=== PATIENT | male | born 1965 | race Caucasian/White ===

== ENCOUNTER 2020-11-27 14:09 | Outpatient (REF) | payer BC, SELFPAY ==
[2020-11-27 18:10] LABS: Estimated Average Glucose 126 mg/dL
[2020-11-27 18:32] LABS: Alanine Aminotransferase 18 U/L (0-40); Albumin Level 4.2 g/dL (3.5-5.0); Alkaline Phosphatase 59 U/L (39-117); Anion Gap 11 (12-20); Aspartate Amino Transferase 14 U/L (5-37); Bilirubin Total 0.5 mg/dL (0.0-1.0); Blood Urea Nitrogen 22 mg/dL (9-16); Calcium 9.4 mg/dL (8.4-10.2); Carbon Dioxide 29 mmol/L (22-29); Chloride 104 mmol/L (96-108); Estimated Glomerular Filt Rate 53; Glucose Random 134 mg/dL (60-115); Potassium 4.3 mmol/L (3.3-5.1); Sodium 140 mmol/L (135-145); Total Protein 6.4 g/dL (6.5-8.0)
== END 2020-11-27 14:10 | disposition home or self-care (01) ==
LOC: HO.MANLDS 14:09
PROVIDERS: PCP Internal Medicine; Visit Provider Physician Assistant
DX: R73.01 Impaired fasting glucose (principal)
CPT/HCPCS: 36415; 80053; 83036

== ENCOUNTER 2021-10-13 14:54 | Outpatient (REF) | payer BC, SELFPAY ==
[2021-10-13 18:09] LABS: Alanine Aminotransferase 84 U/L (0-40); Alkaline Phosphatase 189 U/L (39-117); Anion Gap 15 (12-20); Aspartate Amino Transferase 25 U/L (5-37); Bilirubin Total 0.4 mg/dL (0.0-1.0); Blood Urea Nitrogen 25 mg/dL (9-16); Calcium 9.4 mg/dL (8.4-10.2); Carbon Dioxide 25 mmol/L (22-29); Chloride 103 mmol/L (96-108); Estimated Glomerular Filt Rate 57; Glucose Random 135 mg/dL (60-115); Potassium 4.1 mmol/L (3.3-5.1); Sodium 139 mmol/L (135-145)
== END 2021-10-13 14:55 | disposition home or self-care (01) ==
LOC: HO.MANLDS 14:54
PROVIDERS: PCP Physician Assistant; Visit Provider Physician Assistant
DX: R79.89 Other specified abnormal findings of blood chemistry (principal)
CPT/HCPCS: 36415; 80053

== ENCOUNTER 2024-08-18 10:49 | Outpatient (REF) | payer BC, SELFPAY ==
--- OUTSIDE RECORDS SUMMARY | 2024-08-18 12:23 | XMS_ITS | Referral Summary ---
Author Organization [facility] Address [address] [place] [address] Care Team Providers Care Brand Recorder Name Role Phone Jassi José Primary Care Provider [phone] Allergies No known active allergies Medications dextroamphetami ne-amphetamine (ADDERALL) 10 mg tablet Take 10 mg by mouth once a day. Active oxyCODONE IR (ROXICODONE) 5 mg tablet Take 1 tablet (5 mg total) by mouth every 4 hours as needed for pain for up to 30 doses. Max Daily Amount: 30 mg 30 tablet Active Additional Information Patient not taking.Reported on 04/03/2022 acetaminophen (TYLENOL) 500 mg tablet Take 500 mg by mouth every 6 hours as needed for pain. Active ibuprofen (MOTRIN) 400 mg tablet Take 400 mg by mouth every 6 hours as needed for pain. 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 Traumatic amputation of righ t upper extremity, initial encounter 10/04/2021 Attention deficit hyperactivity disorder 018 Childhood asthma 01/19/2018 Acute traumatic pain Social History Tobacco Use Types Packs/Day Years Used Date Smoking Tobacco: Never Smokeless Tobacco: Never Alcohol Use Standard Drinks/Week Comments Not Currently 0 (1 standard drink = 0.6 oz pur e alcohol) Sex and Gender Information Value Date Recorded Sex Assigned at Male 10/19/2021 9:07 AM EDT Legal Sex Male 6:54 PM EDT Gender Identity Male 10/19/2021 9:07 AM EDT Sexual Orientation Straight 10/19/2021 9: 07 AM EDT Last Filed Vital Signs Vital Sign Reading Time Taken Comments Blood Pressure 131/82 05/13/2022 11:08 AM EST Pulse 76 05/13/2022 11:08 AM EST Temperature 36.7 ??C (98 ??F) 10/16/2021 12:50 PM EDT Respiratory Rate 16 10/16/2021 12:45 PM EDT Oxygen Saturation 97% 10/16/2021 12:50 PM EDT Inhaled Oxygen Concentration - - Weight 78.5 kg (173 lb) 05/13/2022 11:08 AM EST Height 170.2 cm (5' 7 ) 05/13/2022 11:08 AM EST Body Mass Index 27.1 05/13/2022 11:08 AM EST Plan of Treatment Not on file Insurance [facility] PPO/EPO Advance Directives * Full Code (Latest Code Status on File) Date Activated Date Inactivated Comments 10/05/2021 1:14 PM 10/09/2021 3:56 PM Care Teams Brand Recorder Relationship Specialty Start Date End Date Jassi José [address] [place] [id number] PCP - General Internal Medicine 08/22/21
--- OUTSIDE RECORDS SUMMARY | 2024-08-18 12:23 | XMS_ITS | Clinical Summary ---
Author Organization [facility] Address [address] [place] [address] Care Team Providers Care Credit Risk Officer Name Role Phone Jassi José Primary Care Provider Allergies No known active allergies Medications dextroamphetami [...] 05/13/2022 11:08 AM EST Plan of Treatment Health Maintenance Due Date Last Done Comments Cologuard 1967 Colon Cancer Screening 1967 Colonoscopy 1967 FOBT / Fit Test 1967 HIV Screening 1967 Hepatitis C Screening 1967 Sigmoidoscopy 1967 Hepatitis B Vaccines (1 of 3 - 19+ 3-dose series) 1986 Pneumococcal Vaccine: 50+ Ye ars (1 of 2 - PCV) 1986 Zoster Vaccines (1 of 2) 2017 COVID-19 Vaccine ( - season) 2024 05/07/2021, 10/25/2020, 09/27/2020 Influenza Vaccine (#1) 2024 Alcohol/Substance Use Screening 06/14/2024 Depression Screening and Follow-Up 06/14/2024 Social Drivers of Health Tara ual Screening 06/14/2024 DTaP,Tdap,and Td Vaccines (2 - Td or Tdap) 10/07/2031 10/06/2021 RSV Vaccine (60+ years old a nd patients) (1 - 1-dose 75+ series) 2042 Insurance [employer] [place] PPO/EPO Advance Directives * Full Code (Latest Code Status on File) Date Activated Date Inactivated Comments 10/05/2021 1:14 PM 10/09/2021 3:56 PM Care Teams Credit Risk Officer Relationship Specialty Start Date End Date Jassi José [address] [place] [phone] PCP - General Internal Medicine 08/22/21
--- OUTSIDE RECORDS SUMMARY | 2024-08-18 12:23 | XMS_ITS | Encounter Summary ---
Author Organization [facility] Address [address] [place] [address] Care Team Providers Care Wellness Program Manager Name Role Phone Jassi José Primary Care Provider [phone] Reason for Visit * Auth/Cert Specialty Diagnoses / Procedures Referred By Otis dejesus Referred To Contact Diagnoses Finger mass, right Finger mass, right [R22.31] Procedures MA SECD CLOS SURG WND EXTEN/COMPLIC MA REMOVAL OF FOREIGN BODY DEEP/COMPLIC RIGHT THUMB REMOVAL OF SUTURE GRANULOMA Trell Anna MD [address] [place] [id number] Phone: tel: fax: Referral ID Status Reason Start Date Expiration Date Visits Re quested Visits Authorized [id number] 10/06/2021 99 99 Encounter Details Date Type Department Care Team ([facility] Contact Info) Description 04/24/2024 12:00 PM [facility] Hospital Encounter Social History Tobacco Use Types Packs/Day Years [...] Orientation Straight 10/19/2021 9: 07 AM EDT documented as of this encounter Plan of Treatment Not on file documented as of this encounter Visit Diagnoses Diagnosis Finger mass, right- Primary Localized superficial swelling, mass, or lump documented in this encounter Admitting Diagnoses Diagnosis Finger mass, right Localized superficial swelling, mass, or lump documented in this encounter Care Teams Wellness Program Manager Relationship Specialty Start Date End Date Jassi José [address] [place] [phone] PCP - General Internal Medicine 08/22/21 documented as of this encounter
--- OUTSIDE RECORDS SUMMARY | 2024-08-18 12:23 | XMS_ITS | Data Portability ---
Author Organization [facility] Home Service Address [address] [place] [address] Assessment No assessment recorded. Plan of Treatment Reminders Order Date Submit Date Provider Last Modified By Organization Details Last Modified Time Details Appointments NEW PROBLEM 15 2024 10:15A M DAVID ROSARIO Not available Not available Not available Lab lipid panel, blood 2024 025 [facility], [address] [place] [address], [address], 08/18/2024 10:45:48 CK (creatine kinase), total, serum 2024 025 [facility], [address] [place] [address], [address], 08/18/2024 10:45:48 erythrocy te sedimenta tion rate by westergre n method 2024 025 [facility], [address] [place] [address], [place], [address], 08/18/2024 10:45:48 C-reactiv e protein, quantitat chantale, serum or plasma 2024 025 [facility], [address] [place] [address], [address], 08/18/2024 10:45:48 vitamin B12 + folate, serum or blood 2024 025 [facility], [address] [place] [address], [address], 08/18/2024 10:45:48 vitamin D, 25-hydrox y, total, serum 2024 025 [facility], [address] [place] [address], [address], 08/18/2024 10:45:48 testoster one, free + total, serum 2024 025 [facility], [address] [place] [address], [address], 08/18/2024 10:45:48 TSH + T4, serum 2024 025 [facility], [address] [place] [address], [address], 08/18/2024 10:45:48 CBC w/ auto diff 2024 025 [facility], [address] [place] [address], [address], 08/18/2024 10:45:48 hemoglobi n A1c, QN, blood 2024 025 [facility], [address] [place] [address], [address], 08/18/2024 10:45:48 iron + TIBC + ferritin, serum 2024 025 [facility], [address] [place] [address], [address], 08/18/2024 10:45:48 CMP, serum or plasma 2024 025 [facility], [address] [place] [address], [address], 08/18/2024 10:45:48 PSA, serum or plasma 2022 023 [facility] (Out[facility]), [address] [place] [address], [address], 04/21/2023 19:44:59 uric acid, serum or plasma 2022 023 [facility] (Outpatient), [address] [place] [address], [address], 04/21/2023 11:39:12 BATSHEVA (antinucl ear antibodie s) screen, serum 2022 023 [facility] (Outpatient), [address] [place] [address], [address], 04/21/2023 11:39:11 vitamin B12 + folate, serum or blood 2022 023 [facility] (Outpatient), [address] [place] [address], [address], 04/21/2023 11:39:12 ESR (erythroc yte sedimenta tion rate), blood 2022 023 [facility] (Outpatient), [address] [place] [address], [address], 04/21/2023 11:39:11 lyme igg + igm Ab, western blot, serum 2022 023 [facility] (Outpatient), [address] [place] [address], [address], 04/22/2023 12:06:07 anaplasma phagocyto philum (hga/hge) igg+igm Ab, serum 2022 023 [facility] (Outpatient), [address] [place] [address], [address], 04/24/2023 08:42:34 rf (rheumato id factor), serum 2022 023 [facility] (Outpatient), [address] [place], [address], 04/21/2023 11:39:11 C-reactiv e protein, quantitat chantale, serum or plasma 2022 023 [facility] (Outpatient), [address] [place], [address], 04/21/2023 19:44:36 ehrlichia chaffeens is, igg+igm Ab, serum 2022 023 [facility] (Outpatient), [address] [place], [address], 04/24/2023 08:42:03 Referral physical therapist referral 2022 023 [facility], [address] [place], [address], 12/22/2022 08:10:59 gastroent erologist referral 2022 023 [facility], [address] [place] [address], [address], 06/22/2022 08:51:03 Procedures None recorded. Surgeries None recorded. Imaging CT, abdomen + pelvis, w/o contrast 2023 024 [email or web address] Not available 04/19/2024 08:11:03 XR, shoulder, 2 or more view 2023 024 [facility] Not available 04/08/2024 23:47:38 Medication Orders tizanidin e 4 mg tablet 2022 023 [email or web address] [facility], [address] [place], [address], 04/07/2024 11:53:23 prednison e 10 mg tablet 2022 023 [email or web address] [facility], [address] [place], [address], 08/18/2024 10:27:51 omeprazol e 20 mg capsule,d elayed release 2022 023 [facility], [address] [place], [address], 06/17/2022 09:42:24 Patient TargetsNo targets recorded. Patient InstructionsNo instructions recorded. Reason for Referral Tutoring Clinician Referral for Gastro-esophageal reflux disease with esophagitis esophagitis on esophagus Referring Physician: Arin Briggs, Internal Medicine, Encounter Date: 06/17/2022 Physical Therapist Referral for Thoracic back pain thoracic back pain and spasm Referring Physician: Arin Briggs, Internal Medicine, Encounter Date: 12/16/2022 Results Created Date Observation Date Name Description Value Unit Range Abnormal Flag Note LastModifiedBy Organization Detail LastModifiedTime 05/29/20 22 05/28/2022 CT, abdom en + pelvi s, w/o contr ast No observ ation record ed. [email or web address] [facility] [address] [place] [address], [address], 06/17/2022 09:42:57 03/16/20 23 03/16/2023 XR, thora cic spine , 2 view No observ ation record ed. [email or web address] [address], [address], 03/19/2023 16:09:43 04/08/20 24 04/07/2024 XR, shoul joe, 2 or more view No observ ation record ed. [email or web address] [address], [address], 04/10/2024 09:23:12 04/26/20 24 04/23/2024 CT, abdom en + pelvi s, w/o contr ast No observ ation record ed. [email or web address] [address], [address], 04/26/2024 11:58:07 05/12/20 24 05/12/2024 XR, orbit , 4 or more view No observ ation record ed. [email or web address] [address], [address], 05/15/2024 08:58:01 05/16/20 24 05/16/2024 MRI, shoul joe, w/o contr ast No observ ation record ed. [email or web address] [address], [address], 05/22/2024 12:55:52 Result Notes None recorded. Problems Name Problem SNOMED Code Status Onset Date Resolution Date Notes Provider Name and Address Organization Details Recorded Time Attention deficit hyperacti vity disorder 544880993 Active 2017 Nilda benitez [facility] 8 16:40:42 Impaired fasting glycemia 005392299 Active 2017 Nilda benitez [facility] 8 16:40:48 Childhood asthma 664595040 Active 2017 Nilda benitez [facility] 8 16:40:56 Asthma 112016433 Active 2021 DAVID ROSARIO [address] [place], [address], [facility] 2 11:50:03 Serum creatinin e above reference range 461492443 Active 2021 DAVID ROSARIO [address] [place], [address], [facility] 2 12:04:14 Traumatic amputatio n, finger, through distal interphal angeal joint 367584998 Active 2021 DAVID ROSARIO [address] [place], [address], [facility] 2 12:17:35 Pain in pelvis 00330621 Active 2021 DAVID ROSARIO [address] [place], [address], [facility] 2 09:43:05 Gastro-es ophageal reflux disease with esophagit is 613605388 Active 2022 DAVID ROSARIO [address] [place], [address], [facility] 3 09:40:50 Umbilical hernia 021475108 Active 2022 DAVID ROSARIO [address] [place], [address], [facility] 3 09:46:06 Degenerat ion of lumbar intervert ebral disc 72322140 Active 2022 DAVID ROSARIO [address] [place], [address], [facility] 3 09:46:14 Diverticu losis of colon 595774695 Active 2022 DAVID ROSARIO [address] [place], [address], [facility] 3 09:46:26 Kidney stone 13778726 Active 2022 DAVID ROSARIO [address] [place], [address], [facility] 3 09:46:43 Thoracic back pain 828107276 Active 2022 DAVID ROSARIO [address] [place], [address], [facility] 3 11:36:53 Degenerat ion of thoracic intervert ebral disc 16228985 Active 2022 DAVID ROSARIO [address] [place], [address], [facility] 3 10:30:48 Multiple joint pain 90235478 Active 2022 DAVID ROSARIO [address] [place], [address], [facility] 3 11:33:38 Induratio n penis plastica 6698462 Active 2022 DAVID ROSARIO [address] [place], [address], [facility] 3 11:35:15 Pain of right shoulder joint 374939233694 52992 Active 2023 DAVID ROSARIO [address] [place], [address], [facility] 4 12:29:57 Rotator cuff impingeme nt syndrome 710556392 Active 2023 DAVID ROSARIO [address] [place], [address], [facility] 4 10:26:31 Rotator cuff impingeme nt syndrome 526872134 Active 2023 DAVID ROSARIO [address] [place], [address], [facility] 4 10:26:33 Pain of right knee joint 653570350363 100 Active 2023 DAVID ROSARIO [address] [place], [address], [facility] 4 13:36:17 Supraspin atus tear 954640107 Active 2023 DAVID ROSARIO [address] [place], [address], [facility] 4 12:58:16 Pain of left elbow joint 097177378832 56495 Active 2024 DAVID ROSARIO [address] [place], [address], [facility] 5 11:43:39 Fatigue 20307944 Active 2024 DAVID ROSARIO [address] [place], [address], [facility] 5 10:38:44 Gastroeso phageal reflux disease 614254697 Active 2024 DAVID ROSARIO [address] [place], [address], [facility] 5 10:40:13 Intoleran ce to lactose 418036630 Active 2024 DAVID ROSARIO [address] [place], [address], [facility] 5 10:41:55 Myalgia caused by statin 292647479822 14365 Active 2024 DAVID ROSARIO [address] [place] [address], [address], [facility] 10:42:51 Problem Notes None recorded. Procedures Surgical History Date Name Laterality Status Provider Name and Address Organization Details Recorded Time Remove tonsils and adenoids completed September SUMA Spaulding [address] [place] [address], [address], [facility] 08/21/2019 09:39:53 extraction of wisdom tooth completed September [facility] [address], [address], [facility] 08/21/2019 09:40:00 Imaging Results Imaging Date Name Status LastModified by Organiz ation Details LastModified Time 05/28/2022 CT, abdomen + pelvis, w/o contrast completed [email or web address] [facility] [address] [place] [address], [address], 06/17/2022 09:42:57 03/16/2023 XR, thoracic spine, 2 view completed [address], [address], 03/19/2023 16:09:43 04/07/2024 XR, shoulder, 2 or more view completed [email or web address] [address], [address], 04/10/2024 09:23:12 04/23/2024 CT, abdomen + pelvis, w/o contrast completed [email or web address] [address], [address], 04/26/2024 11:58:07 05/12/2024 XR, orbit, 4 or more view completed [email or web address] [address], [address], 05/15/2024 08:58:01 05/16/2024 MRI, shoulder, w/o contrast completed [email or web address] [address], [address], 05/22/2024 12:55:52 Procedure Notes None recorded. Medical Equipment None Reported. Allergies No known drug allergies Medications Name Sig Start Date Stop Date Status Note LastModified by Organization Details LastModified Time cyclobenzap rine 10 mg tablet TAKE 1 TABLET BY MOUTH THREE TIMES DAILY FOR 15 DAYS NEEDED 02/18 completed Not Available Not Available Not Available prednisone 10 mg tablet PLEASE SEE ATTACHED FOR DETAILED DIRECTION S 08/18 completed Not Available Not Available Not Available azithromyci n 250 mg tablet TAKE 2 TABLETS BY MOUTH TODAY, THEN TAKE 1 TABLET DAILY FOR 4 DAYS DIRECTED 08/18 completed Not Available Not Available Not Available tizanidine 4 mg tablet TAKE 1 TABLET BY MOUTH EVERY 6 HOURS NEEDED FOR 14 DAYS 04/07 completed Not Available Not Available Not Available acetaminoph en 300 mg-codeine 30 mg tablet 01/21 completed Not Available Not Available Not Available ciprofloxac in 500 mg tablet TAKE 1 TABLET BY MOUTH EVERY 12 HOURS FOR 5 DAYS 04/29 completed Not Available Not Available Not Available sulfamethox azole 800 mg-trimetho prim 160 mg tablet 02/18 completed Not Available Not Available Not Available dexmethylph enidate 5 mg tablet 08/20 completed Not Available Not Available Not Available ketorolac 10 mg tablet 10/13 completed Not Available Not Available Not Available dextroamphe tamine-amph etamine ER 20 mg 24hr capsule,ext end release TAKE 1 CAPSULE BY MOUTH EVERY MORNING DIRECTED FOR ADHD active Not Available Not Available No t Available doxycycline monohydrate 100 mg capsule PLEASE SEE ATTACHED FOR DETAILED DIRECTION S 05/04 completed Not Available Not Available Not Available cephalexin 500 mg capsule TAKE 1 CAPSULE BY MOUTH 4 TIMES A DAY FOR 7 DAYS. 08/18 completed Not Available Not Available Not Available pantoprazol e 40 mg tablet,riki yed release active Not Available Not Available Not Available dextroamphe tamine-amph etamine 20 mg tablet TAKE 1 TABLET BY MOUTH TWICE A DAY (7AM AND 2PM) FOR ADHD 10/13 completed Not Available Not Available Not Available mupirocin calcium 2 % topical cream 01/21 completed Not Available Not Available Not Available omeprazole 20 mg capsule,del ayed release TAKE 1 CAPSULE BY MOUTH EVERY DAY FOR 90 DAYS active Not Available Not Available No t Available diclofenac sodium 75 mg tablet,riki yed release TAKE 1 TABLET BY MOUTH TWICE DAILY WITH MEALS FOR 15 DAYS 04/29 completed Not Available Not Available Not Available dextroamphe tamine-amph etamine ER 10 mg 24hr capsule,ext end release TAKE 2 CAPSULES BY MOUTH EVERY MORNING FOR ADHD 08/18 completed Not Available Not Available Not Available albuterol sulfate HFA 90 mcg/actuati on aerosol inhaler INHALE 2 PUFFS EVERY 4 HOURS BY INHALATIO N ROUTE FOR 30 DAYS. 12/16 completed Not Available Not Available Not Available ondansetron 4 mg disintegrat ing tablet 10/13 completed Not Available Not Available Not Available doxycycline hyclate 100 mg tablet 01/21 completed Not Available Not Available Not Available naproxen 500 mg tablet Take 1 tablet twice a day by oral route for 15 days. 08/20 completed Not Available Not Available Not Available Adderall 10 mg tablet Take 1 tablet every day by oral route. 05/04 completed Not Available Not Available Not Available oxycodone 5 mg tablet TAKE 1 TABLET BY MOUTH EVERY 4 HOURS NEEDED FOR PAIN 10/13 completed Not Available Not Available Not Available dextroamphe tamine-amph etamine ER 25 mg 24hr capsule,ext end release 08/20 completed Not Available Not Available Not Available Boostrix Tdap 2.5 Lf unit-8 mcg-5 Lf/0.5 mL intramuscul ar syringe 08/20 completed Not Available Not Available Not Available ibuprofen 500mg twice a day prn active Not Available Not Available No t Available DayQuil Allergy 12-HR PRN 10/13 completed Not Available Not Available Not Available GaviLyte-G 236 gram-22.74 gram-6.74 gram-5.86 gram oral solution 01/21 completed Not Available Not Available Not Available Zyrtec 10 mg capsule Take 1 capsule every day by oral route. 04/29 completed Not Available Not Available Not Available Paxlovid 300 mg (150 mg x 2)-100 mg tablets in a dose pack 05/04 completed Not Available Not Available Not Available Vitals Date Recorded Body height Body mass index (BMI) Body weight Heart rate Oxygen saturation Oxygen saturation in Arterial blood by Pulse oximetry Systolic blood pressure Diastolic blood pressure Provider Name and Address Organization Details Last Updated DateTime 3 171.45 cm 26.9 kg/m2 27938.7 9 g 106 /min 95 % 95 % 132 mm[Hg] 62 mm[Hg] Aishwarya Carrillo [facility] 3 09:20:48 Date Recorded Body height Body mass index (BMI) Body weight Heart rate Oxygen saturation Oxygen saturation in Arterial blood by Pulse oximetry Systolic blood pressure Diastolic blood pressure Provider Name and Address Organization Details Last Updated DateTime 3 171.45 cm 26.8 kg/m2 65867.0 7 g 97 /min 98 % 98 % 130 mm[Hg] 72 mm[Hg] Lucita Richardson [facility] 3 11:23:44 Date Recorded Body height Body mass index (BMI) Body weight Systolic blood pressure Diastolic blood pressure Provider Name and Address Organization Details Last Updated DateTime 04/21/2023 171.45 cm 26.8 kg/m2 62278.07 g 120 mm[Hg] 70 mm[Hg] Lucita Richardson [facility] 3 11:20:24 Date Recorded Body height Body mass index (BMI) Body weight Heart rate Oxygen saturation Oxygen saturation in Arterial blood by Pulse oximetry Systolic blood pressure Diastolic blood pressure Provider Name and Address Organization Details Last Updated DateTime 4 171.45 cm 26.8 kg/m2 29209.0 7 g 72 /min 96 % 96 % 124 mm[Hg] 82 mm[Hg] Giselle Landa [facility] 4 11:55:56 Date Recorded Body height Body mass index (BMI) Body weight Heart rate Oxygen saturation Oxygen saturation in Arterial blood by Pulse oximetry Systolic blood pressure Diastolic blood pressure Provider Name and Address Organization Details Last Updated DateTime 5 171.45 cm 26.8 kg/m2 20820.0 7 g 79 /min 94 % 94 % 130 mm[Hg] 80 mm[Hg] Lucita Richardson [facility] 5 10:31:08 Social History Question Answer Notes LastModified by Organizat ion Details LastModified Time Tobacco Smoking Status Never Smoker Not Available [facility] 04/16/2020 03:36:24 What Was The Date Of Your Most Recent Tobacco Screening? 08/18/2024 Information not available 08/18/2024 Sex: Unknown Functional Status None recorded. Mental Status None recorded. Family History Relationship Description Onset Age of this Age Resolved Age Notes LastModified by Organization Details LastModified Time Father Myocardial infarction [email or web address] Not available 02/2020 09:39:25 Mother Diabetes mellitus [email or web address] Not available 08/24 09:14:10 Mother Asthma [email or web address] Not available 08/25/2019 09:14:17 Medical History No medical history recorded. Immunizations Vaccine Type Date Status Note Provider Nam e and Address Organization Details Recorded Time Tdap 10/06/[address] [facility] 04/16/2022 18:42:50 Tdap 09/19/[address] [facility] 04/16/2022 18:42:50 COVID-19, mRNA, LNP-S, PF, 100 mcg/0.5mL dose or 50 mcg/0.25mL dose 09/27/2020 completed TOM Wan [facility] 12/16/2022 11:17:21 COVID-19, mRNA, LNP-S, PF, 100 mcg/0.5mL dose or 50 mcg/0.25mL dose 10/25/2020 completed Bell benitez [place] [facility] 12/16/2022 11:17:21 Past Encounters Encounter ID Performer Location Encounter Start Date Encounter Closed Date Diagnosis/Indication Diagnosis SNOMED-CT Code Diagnosis ICD10 Code Diagnosis Note [id number] September SUMA Spaulding [facility] [address] [facility],[place] [address] 01/21/2018 09:49:25 01/21/2018 10:24:33 Pain of left shoulder joint 9493305446 4589577 M25.512 likely sprain given mechanism of injury treatment as below rest, ice, stretch Costal chondritis 498658 04 M94.0 ice and NSAIDS Acute low back pain 2788 25656 M54.5 [id number] [facility] [address] [facility],[place] [address] 08/16/2018 10:11:17 08/16/2018 11:30:08 Adult health examination 197826966 Z00.00 Active or passive immunization 706126988 Z23 Body mass index 25-29 - overweight 793350456 Z68.26 improve diet and exercise [id number] [facility] [address] [facility],[place] [address] 08/21/2019 09:15:10 08/21/2019 10:12:00 Adult health examination 763908595 Z00.00 Active or passive immunization 150972588 Z23 Body mass index 25-29 - overweight 565748405 Z68.26 mild. normal waist circumfere nce improve diet and exercise Pain of left testicle 16 97530593 1585898 N50.812 [id number] DAVID ROSARIO [facility] [address] [facility],[place] [address] 10/31/2019 15:33:31 10/31/2019 16:17:58 Shoulder joint pain 740590181 M25.519 given the trauma to the shoulder and the positive Lopez and empty can test will refer to ortho for XR and MRI [id number] DAVID ROSARIO [facility] [address] [facility], [place] [address] 11/27/2020 13:52:21 11/27/2020 15:54:10 Neck pain 14187115 M54.2 will treat Cervico-oc cipital neuralgia 58259326 M54.81 will treathas fu for shoulder with NEOS Impaired f asting glycemia 002476065 R73.01 will recheck labs [id number] DAVID ROSARIO [facility] [address] [facility],[place] [address] 02/11/2021 13:26:20 02/11/2021 15:05:27 Acute bronchitis 39613443 J20.9 will start on pred taper and z paktold him to rest, use tea and honey, can use OTC anti-hista mines Cough 05359722 R05 use cough drops, OTC anti-tussi ves Insect bite - wound 2764 19310 T14.8XXA monitor, keep clean [id number] DAVID ROSARIO [facility] [address] [facility],[place] [facility] [place] [address] 04/29/2021 09:26:33 04/29/2021 10:11:23 Active or passive immunization 395304330 Z23 advisedup to date Adult heal th examination 780437527 Z00.00 BW last check was goodwill hold on recheck until next appt [id number] DAVID ROSARIO [facility] [address] [facility],[place] [address] 10/13/2021 11:48:18 10/14/2021 16:36:21 Asthma 599720409 J45.20 stable Serum crea tinine above reference range 485261788 R79.89 will recheck levels for his kidney, following elevated levels in the hospital that did not level out Traumatic amputation, finger, through distal interphalangeal joint 800768377 S68.610A has fu with ortho and plastics [id number] DAVID ROSARIO [facility] [address] [facility],[place] [address] 05/04/2022 09:01:12 05/04/2022 13:55:41 Active or passive immunization 589491676 Z23 advisedup to date Adult heal th examination 685246047 Z00.00 BW last check was goodwill hold on recheck until next appt Pain in pelvis 50379035 R10.[address] Family his tory of hemochromatosis 703332256 Z83.49 will fu with genetic testing [id number] DAVID ROSARIO [facility] [address] [facility] [address] 06/17/2022 09:17:21 06/17/2022 10:05:09 Gastro-esophageal reflux disease with esophagitis 943505174 K21.01 will start on omeprazole until he sees GI Umbilical hernia 8587473 07 K42.9 stable, will monitor Degenerati on of lumbar intervertebral disc 21181368 M51.36 mild back pain, will keep Diverticul osis of colon 569436325 K57.30 stable, no flare ups, patient aware of symptoms to look for Kidney stone 07961579 N2 0.0 right kidney, will monitor [id number] DAVID ROSARIO [facility] [address] [place] [address],[place] [address] 12/16/2022 11:15:58 12/16/2022 14:03:10 Thoracic back pain 834193679 M54.6 will set up with tizanidine and prednisone taperstart there and also cont with the massage [id number] DAVID ROSARIO [facility] [address] [place] [address] 04/21/2023 11:16:40 04/21/2023 13:32:50 Multiple joint pain 77114146 M25.512 will set up with screening for tick borne illness or other possible causes Induration penis plastica 9492483 N48.6 will set up with PSA [id number] DAVID ROSARIO [facility] Medicine [address] [place] [address],[place] [address] 04/07/2024 11:44:56 04/07/2024 16:02:36 Depression screening 836817143 Z13.31 SCREENING NEGATIVE Pain of ri ght shoulder joint 8247938027 8988004 M25.511 agreed to XR shoulder Induration penis plastica 2999412 N48.6 will set up with PSA [id number] DAVID ROSARIO [facility] [address] [place] [address], ite [facility] [place] [address] 08/18/2024 10:20:21 08/18/2024 10:47:07 Fatigue 87816109 R53.83 Screening for cardiovascular system disease 371567809 Z13.6 Gastroesop hageal reflux disease 952542415 K21.9 Intoleranc e to lactose 292326902 E73.8 Myalgia ca used by statin 0149497462 5425441 M79.10 Health Concerns Section Related Observation LastModified by Organization Detai ls LastModified Time None Recorded Concern Status LastModified by Organization Details LastModified Time None Recorded Advance Directives Directive None Recorded Payers Encounter Date Sequence Insurance Name Policy Number Policy Murray Covered Member ID Murray Member ID Guarantor Name 06/17/2022 1 [place] [facility] [employer] (O) [id number] Maria M A Bashista [id number] 56 Josesito Bashista 12/16/2022 1 [place] [employer] [place] [id number] Maria M A Bashista [id number] Josesito Bashista 04/21/2023 1 [place] [facility] [employer] [place]) [id number] Maria M A Bashista [id number] 56 Josesito Bashista 04/07/2024 1 [place] [id number] Maria M A Bashista [id number] Josesito Bashista 08/18/2024 1 [place] [id number] Maria M A Bashista [id number] Josesito Bashista Notes Date Note Type Note Provider Name a nd Address Organization Details Recorded Time 06/17/2022 text/html review CT result s reviewed results including esophagitis which patient agreed to endoscope with GI eval, will start on prilosec in the meantime, prescription sentdoes report more trouble swallowing which is correlated to the inflammation he does have a fat containing umbilical hernia, discussed what to look for and where the pain will typically be locate also has multilevel degenerative disease in his lumbar spine, pt does have low back pain, though mild at this time, will monitor to see if it progresses diverticulosis of the colon, not active but added to problem list in case of future events also has a right sided small kidney stone, will just monitor that if he start presenting with flank pain patient was given a copy of CT report and his original hospital visit for disability insurance otherwise patient is doing well repeat blood work was normal, original related to lab error DAVID ROSARIO [address] [place], [address], [facility] 06/17/2022 09:55:09 12/16/2022 text/html c/o low back wolfgang n the patient reports that he has noticed for the last two monthsdid call about a month ago; was told to RICE but no improvement the patient has tried massage, NSAID's, PT no changes in his presentation or pain level pain feels sharper painno burning or electric pain does get shocking pain in the remainder of his right hand which is common for his type of injury left side mid thoracic; between his shoulder bladesis compensating a lot on his left side due to the traumatic amputation of the right phalanges the patient gets same pain intermittently same type on the right side as well works as a brown; 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, bending and lifting as well tends to provoke and worsen his symptoms no significant neck painmild low back pain, very inconsistent DAVID ROSARIO [address] [place], [address], [facility] 12/16/2022 11:48:46 04/21/2023 text/html f/o joint pain the patient reports symmetric pain in the knees, hips, shoulders, elbowsa little in his handshas been going on for a few daysdid try taking APAP and ibu without significant change in symptoms pain feels like a pressure in his joints the patient may have been bite by a bug before, not sure thoughwill need levels taken to r/o lyme disease DAVID ROSARIO [address] [place], [address], [facility] 04/21/2023 11:46:50 04/07/2024 text/html c/o right should er pain the patient was seeing his PT/OT for his right hand amputationthe patient has been having them work on his right shoulder the patient has hx of right shoulder pain which he has been putting up with recommended f/u with XR of his shoulder DAVID ROSARIO [address] [place], [address], [facility] 04/07/2024 12:36:34 08/18/2024 text/html c/o joint pain the patient is having bilateral joint pain of his hips, knees, and anklesno significant trauma or injurythe patient reports that he is also feeling more fatigued the patient reports that it has improved the patient has intermittent groin pain, which he has had for awhile, his scans and other testing has been normal, most likely muscle strain due to job the patient has an upper GI scheduled agreed to more lab work, with routine lab work as wellpossibly just inflammation due to work and activity level DAVID ROSARIO [address] [place] [address], [place], [address], [facility] 08/18/2024 10:47:05
--- OUTSIDE RECORDS SUMMARY | 2024-08-18 12:24 | XMS_ITS | Continuity of Care Document ---
Author Organization [facility], [facility] Address [address] [place] [address] [place] [address] Assessment No assessment recorded. Plan of Treatment Reminders Order Date Submit Date Provider Last Modified By Organization Details Last Modified Time Details Appointments NEW PROBLEM 15 2024 10:15A DAVID BAUGH Not available Not available Not available Lab lipid panel, blood 2024 025 [facility], [address] [place] [address], [id number], 08/18/2024 10:45:48 CK (creatine kinase), total, serum 2024 025 [facility], [address] [place] [address], [id number], 08/18/2024 10:45:48 erythrocy te sedimenta tion rate by westergre n method 2024 025 [facility], [address] [place] [address], [id number], 08/18/2024 10:45:48 C-reactiv e protein, quantitat [place], serum or plasma 2024 025 [facility], [address] [place] [address], [id number], 08/18/2024 10:45:48 vitamin B12 + folate, serum or blood 2024 025 [facility], [address] [place] [address], [id number], 08/18/2024 10:45:48 vitamin D, 25-hydrox y, total, serum 2024 [facility], [address] [place] [address], [address], 08/18/2024 10:45:48 testoster one, free + total, serum 2024 [facility], [address] [place] [address], [address], 08/18/2024 10:45:48 TSH + T4, serum 2024 [facility], [address] [place] [address], [address], 08/18/2024 10:45:48 CBC w/ auto diff [address] [place] [address] Laboratory, [address] [place] [address], [address], 08/18/2024 10:45:48 hemoglobi n A1c, QN, blood 2024 [facility], [address] [place] [address], [address], 08/18/2024 10:45:48 iron + TIBC + ferritin, serum [address] [place] [address] Laboratory, [address] [place] [address], [address], 08/18/2024 10:45:48 CMP, serum or plasma [address] [place] [address] Laboratory, [address] [place] [address], [address], 08/18/2024 10:45:48 Referral None recorded. Procedures None recorded. Surgeries None recorded. Imaging None recorded. Medication Orders None recorded. Patient TargetsNo targets recorded. Patient InstructionsNo instructions recorded. Reason for Referral None Reported. Problems Name Problem SNOMED Code Status Onset Date Resolution Date Notes Provider Name and Address Organization Details Recorded Time Attention deficit hyperacti vity disorder 889111710 Active 2017 Nildatimothy benitez [facility] 8 16:40:42 Impaired fasting glycemia 490266048 Active 2017 Nildatimothy benitez [facility] 8 16:40:48 Childhood asthma 979759388 Active 2017 Nilda benitez [facility] 8 16:40:56 Asthma 143845936 Active 2021 DAVID ROSARIO [address] [place] [address], [address], [facility] 2 11:50:03 Serum creatinin e above reference range 886099104 Active 2021 DAVID ROSARIO [address] [place] [address], [address], [facility] 2 12:04:14 Traumatic amputatio n, finger, through distal interphal angeal joint 848684849 Active 2021 DAVID ROSARIO [address] [place] [address], [address], [facility] 2 12:17:35 Pain in pelvis 13129262 Active 2021 DAVID ROSARIO [address] [place] [address], [address], [facility] 2 09:43:05 Gastro-es ophageal reflux disease with esophagit is 326898168 Active 2022 DAVID ROSARIO [address] [place] [address], [address], [facility] 3 09:40:50 Umbilical hernia 260205172 Active 2022 DAVID ROSARIO [address] [place] [address], [address], [facility] 3 09:46:06 Degenerat ion of lumbar intervert ebral disc 69610922 Active 2022 DAVID ROSARIO [address] [place], [address], [facility] 3 09:46:14 Diverticu losis of colon 812014814 Active 2022 DAVID ROSARIO [address] [place], [address], [facility] 3 09:46:26 Kidney stone 17193915 Active 2022 DAVID ROSARIO [address] [place], [address], [facility] 3 09:46:43 Thoracic back pain 909813925 Active 2022 DAVID ROSARIO [address] [place] [address], [address], [facility] 3 11:36:53 Degenerat ion of thoracic intervert ebral disc 98560892 Active 2022 DAVID ROSARIO [address] [place], [address], [facility] 3 10:30:48 Multiple joint pain 74638319 Active 2022 DAVID ROSARIO [address] [place], [address], [facility] 3 11:33:38 Induratio n penis plastica 1204620 Active 2022 DAVID ROSARIO [address] [place], [address], [facility] 3 11:35:15 Pain of right shoulder joint 864923139359 73542 Active 2023 DAVID ROSARIO [address] [place], [address], [facility] 4 12:29:57 Rotator cuff impingeme nt syndrome 693590124 Active 2023 DAVID ROSARIO [address] [place], [address], [facility] 4 10:26:31 Rotator cuff impingeme nt syndrome 995688777 Active 2023 DAVID ROSARIO [address] [place], [address], [facility] 4 10:26:33 Pain of right knee joint 526690957417 100 Active 2023 DAVID ROSARIO [address] [place] [address], [address], [facility] 4 13:36:17 Supraspin atus tear 542290017 Active 2023 DAVID ROSARIO [address] [place] [address], [address], [facility] 4 12:58:16 Pain of left elbow joint 009647681462 35039 Active 2024 DAVID ROSARIO [address] [place] [address], [address], [facility] 5 11:43:39 Fatigue 56354545 Active 2024 DAVID ROSARIO [address] [place] [address], [address], [facility] 5 10:38:44 Gastroeso phageal reflux disease 964632964 Active 2024 DAVID ROSARIO [address] [place] [address], [address], [facility] 5 10:40:13 Intoleran ce to lactose 231087965 Active 2024 DAVID ROSARIO [address] [place] [address], [address], [facility] 5 10:41:55 Myalgia caused by statin 789878468402 96420 Active 2024 DAVID ROSARIO [address] [place], [address], [facility] 10:42:51 Problem Notes None recorded. Procedures Surgical History Date Name Laterality Status Provider Name and Address Organization Details Recorded Time [facility] [address] [place], [address], [facility] 08/21/2019 09:39:53 extraction of wisdom tooth completed September [facility] [address], [address], [facility] 08/21/2019 09:40:00 Imaging Results None recorded. Procedure Notes None recorded. Medical Equipment None [...] Updated DateTime 5 171.45 cm 26.8 kg/m2 46604.0 7 g 79 /min 94 % 94 % 130 mm[Hg] 80 mm[Hg] [facility] 5 10:31:08 Social History Question Answer Notes LastModified by Organizat ion Details LastModified Time Tobacco Smoking Status Never Smoker Not Available [facility] 04/16/2020 03:36:24 What Was The Date Of Your Most Recent Tobacco Screening? 08/18/2024 [email or web address] Information not available 08/18/2024 Sex: Unknown Functional [...] Recorded Time Tdap 10/06/2021 completed Not Available [facility] 04/16/2022 18:42:50 Tdap 09/19/2018 completed Not Available [facility] 04/16/2022 18:42:50 COVID-19, mRNA, LNP-S, PF, 100 mcg/0.5mL dose or 50 mcg/0.25mL dose 09/27/2020 completed Bell benitez [facility] 12/16/2022 11:17:21 COVID-19, mRNA, LNP-S, PF, 100 mcg/0.5mL dose or 50 mcg/0.25mL dose 10/25/2020 completed Bell benitez [facility] 12/16/2022 11:17:21 Past Encounters Encounter ID Performer Location Encounter Start Date Encounter Closed Date Diagnosis/Indication Diagnosis SNOMED-CT Code Diagnosis ICD10 Code Diagnosis Note [id number] DAVID ROSARIO [facility] [address] [address] 08/18/2024 10:20:21 08/18/2024 10:47:07 Fatigue 07786532 R53.83 Screening for cardiovascular system disease 803039486 Z13.6 Gastroesop hageal reflux disease 423029188 K21.9 Intoleranc e to lactose 458508766 E73.8 Myalgia ca used by statin 5961283310 4712554 M79.10 Health Concerns Section Related Observation LastModified by Organization Detai ls LastModified Time None Recorded Concern Status LastModified by Organization Details LastModified Time None Recorded Payers Encounter Date Sequence Insurance Name Policy Number Policy Murray Covered Member ID Murray Member ID Guarantor Name 08/18/2024 1 [employer] [employer] [place] [id number] Maria M Pavon [id number] Josesito Pavon Notes Date Note Type Note Provider Name a nd Address Organization Details Recorded Time 08/18/2024 text/html c/o joint pain the patient [...] to work and activity level DAVID ROSARIO [address] [facility], [place], [address], [facility] 08/18/2024 10:47:05
[2024-08-18 13:36] LABS: MANUAL DIFF FLAG NO
[2024-08-18 13:41] LABS: Basophils Percent Auto 0.8 % (0-2); Eosinophils Absolute Auto 0.2 X10*3/uL (0.0-0.4); Eosinophils Percent Auto 2.9 % (0-4); Hematocrit 45.4 % (42.0-52.0); Hemoglobin 15.2 g/dl (14.0-18.0); Imm Gran Abs Auto 0.01 X10*3/uL (0.00-0.03); Imm Gran Pct Auto 0.2 % (0.0-0.4); Lymphocytes Absolute Auto 1.1 X10*3/uL (1.2-4.9); Lymphocytes Percent Auto 21.2 % (20-40); Mean Corpuscular HGB Conc 33.5 g/dl (31.0-36.0); Mean Corpuscular Hemoglobin 30.4 pg (27.0-33.0); Mean Corpuscular Volume 90.8 fL (80.0-98.0); Mean Platelet Volume 11.4 fL (9.4-12.4); Monocytes Absolute Auto 0.4 X10*3/uL (0.1-1.2); Monocytes Percent Auto 8.2 % (2-11); Neutrophils Absolute Auto 3.4 x10*3/uL (2.0-8.3); Neutrophils Percent Auto 66.7 % (45-73); Platelet Count 188 X10*3/uL (160-400); Red Cell Distribution Width 13.2 % (11.0-16.0); White Blood Count 5.1 X10*3/uL (4.8-10.8)
[2024-08-18 14:09] LABS: Estimated Average Glucose 137 mg/dL; Hemoglobin A1c % 6.4 % (<6.0)
[2024-08-18 14:21] LABS: Erythrocyte Sedimentation Rate 2 MM/HR (0-15)
[2024-08-18 14:25] LABS: Alanine Aminotransferase 39 U/L (0-40); Albumin Level 4.3 g/dL (3.5-5.0); Alkaline Phosphatase 67 U/L (39-117); Anion Gap 11 (12-20); Aspartate Amino Transferase 28 U/L (5-37); Bilirubin Total 0.4 mg/dL (0.0-1.0); Blood Urea Nitrogen 19 mg/dL (9-16); C Reactive Protein < 0.10 mg/dL (< or = 0.50); Calcium 9.5 mg/dL (8.4-10.2); Carbon Dioxide 26 mmol/L (22-29); Chloride 107 mmol/L (96-108); Cholesterol 213 mg/dL (<200); Estimated Glomerular Filt Rate > 60; Ferritin 346 ng/mL (20-250); Glucose Random 104 mg/dL (60-115); HDL Cholesterol 48 mg/dL (>40); Iron 91 mcg/dL (45-160); LDL Cholesterol Calculated 94 mg/dL (<100); Percent Iron Saturation 33 % (15-50); Potassium 4.3 mmol/L (3.3-5.1); Sodium 140 mmol/L (135-145); Thyroid Stimulating Hormone 1.41 uIU/mL (0.32-4.0); Total Iron Binding Capacity 275 mcg/dL (228-428); Total Protein 7.3 g/dL (6.5-8.0); Triglycerides 355 mg/dL (<150); Unsaturated Iron Binding 184 ug/dL
[2024-08-18 14:34] LABS: T4 Thyroxine 5.9 ug/dL (4.5-12.0)
[2024-08-18 15:02] LABS: Vitamin B12 619 pg/mL (200-900)
[2024-08-24 22:53] LABS: VITAMIN D (1,25 OH) D3 44 pg/mL; Vit D (1,25-Dihydroxy) Total 44 pg/mL (18-72); Vitamin D (1,25 OH) D2 <8 pg/mL
[2024-08-26 14:54] LABS: Testosterone, Free 96.8 pg/mL (35.0-155.0); Testosterone, Total 436 ng/dL (250-1100)
== END 2024-08-18 10:50 | disposition home or self-care (01) ==
LOC: HO.MANLDS 10:49
PROVIDERS: Visit Provider Physician Assistant
DX: R53.83 Other fatigue (principal); Z13.6 Encounter for screening for cardiovascular disorders; M79.10 Myalgia, unspecified site; Z13.1 Encounter for screening for diabetes mellitus
CPT/HCPCS: 36415; 80053; 80061; 82550; 82607; 82652; 82728; 83036; 83540; 84402; 84403; 84436; 84443; 85025; 85652; 86140